=== PATIENT | female | born 1985 | race Hispanic/Latino ===

== ENCOUNTER 2017-01-21 07:53 | Inpatient (IN) | payer OTHER ==
[2017-01-21] VITALS (17 sets, daily range): BP systolic 95–140; BP diastolic 49–65
[~2017-01-21] VITALS: Ht 162.6 cm; Wt 95.5 kg
[2017-01-21] MEDS ORDERED: PRENTAB9 PO (08:52)
[2017-01-21] MEDS ORDERED: LACTATED RINGER'S 1000 ML IV STA (09:22)
[2017-01-21] MEDS ORDERED: LR 1,000 ML IV SCH (09:22)
[2017-01-21 09:57] LABS: MEAN CORPUSCULAR HEMOGLOBIN 28.5 pg (27.0-33.0); MEAN CORPUSCULAR HGB CONC 33.5 g/dl (32.0-36.5); MEAN CORPUSCULAR VOLUME 85.1 fl (80.0-96.0); RED CELL DISTRIBUTION WIDTH 14.6 % (11.5-14.5); WHITE BLOOD COUNT 13.1 K/mm3 (4.0-10.0)
--- NOTE | 2017-01-21 10:43 | HPEPDOC ---
Obstetrical History & Physical General Date of Admission Jan 21, 2017 at 09:21 History of Present Illness 31 yo presented to L&D ambulatory @ 39+1 by LMP([id number]) and 8 wk US done on [id number] with c/o SROM @ 0600 this am along with CTX Q 3-5 min that are increasing in intensity. Denies DFM and VB. GBS negative. Triage exam: + valsalva + pooling + nitrazine + ferning SVE- 4/80/-2 (SVE done by Dr. Villanueva) Chief Complaint: LOF, term (Reports loss of clear fluid @ 0600 this am.) Information Provided By: Patient Age: 31 : 5 Term: 1 Pre-term: 0 Abortions: 3 Livin Care Care: Good Care Number of Visits: 12 Dating Final EDC: Jan 27, 2017 Final EDC for Daily Update: Jan 27, 2017 Final EDC by: LMP LMP: Apr 22, 2016 1st Trimester Date: Jun 17, 2016 Weeks + Days: 8.0 Estimated Date of Confinement: Jan 27, 2017 EGA at Admission: 39.1 Antepartum Course Diagnos(e)s 1. obesity, BMI-30 2. zika negative-traveled to [place] in early 3. heart burn 4. excessive weight gain Height (inches): 64 Pre- weight (lbs.): 170 Admission Weight (lbs.): 41 Change in Weight (lbs.): 41 Past Medical History Past Obstetrical History : Past Obstetrical History: Multigravida Date of Delivery: Nov 27, 2012 Gestation: 40 Type of Delivery: Spontaneous Vaginal Del. Sex of Infant: Male Weight of (grams): 3345 Complications: No CARBONATOR History: Spontaneous (2003 x 2 ; ), Theraputic () Past Medical History Medical History DENIES Surgical History: [place] teeth (2004\) Family History Significant Family History: No pertinent family hx Social History Marital Status: Single Family situation: Spouse/partner home Psychosocial History: No pertinent psych hx * Smoker: non-smoker Alcohol: Denies Drugs: denies Abuse Violence Screening Have you been hit/kicked/slapp: No Have you been sexually assault: No Imunizations Tdap status: current ([id number]) Influenza Status: current ([id number]) Allergies Coded Allergies: No Known Allergies (Unverified , 01/21/17) Medications Scheduled Multivitamins/ ( 27-0.8 mg) 1 Tab Tab 1 TAB PO DAILY Physical Examination Physical Examination GENERAL: A&O x 3 BREAST: Gravid ABDOMEN: Gravid, non-tender to touch. FETUS: VTX by SVE and Brad HEART RATE: RRR, no m/r/g LUNGS:CTA EXTREMITIES: +1 LE edema. No clonus. DTRs + 1 EFW- 3900 grams Vital Signs/I&O Vital Signs Date Time Temp Pulse Resp B/P Pulse Ox O2 Delivery O2 Flow Rate FiO2 01/21/17 08:10 68 125/57 Laboratory Data 24H LABS Laboratory Tests 2 01/21/17 09:42: 01/21/17 09:45: Serology Scanned Report Hepatitis B Testing CBC/BMP Laboratory Tests 01/21/17 09:42 Red Blood Count 3.95 L, Mean Corpuscular Volume 85.1, Mean Corpuscular Hemoglobin 28.5, Mean Corpuscular Hemoglobin Concent 33.5, Red Cell Distribution Width 14.6 H Urine Culture: Other (<10,000 growth) Pertinent Laboratoy Data Blood Type: A+ RBC Antibody Screen: Negative HIV: Negative Hepatitis B: Negative Hepatitis C: Unknown Rapid Plasma Reagin: Nonreactive Rubella: Immune Varicella: Immune Chlamydia/Gonorrhea: Negative Group B Streptococcus: Negative Quad Screen Test: Declined Cystic Fibrosis: Negative Glucose Tolerance Test: 83 Anatomy Ultrasound Ultrasound Date: Sep 08, 2016 Placenta Location: Anterior Normal Anatomy: Yes Placenta Previa: No Estimated Weight (grams): 335 Steroid Therapy Steroid Therapy: No Vaginal Examination Dilation: 4 cm Effacement: 80+% Station: -3 Cervical Consistency: Soft Presentation: Cephalic presentation Position: Vertex (occiput) Assessment Heart Rate (FHR): 120 Variability: Moderate Accelerations: Positive Decelerations: None Tocometer Contractions: Yes Frequency: every 2-5 min. Duration: less than 90 seconds Strength: palpated as moderate Multi-drug resistant Organism: No history of MDRO Assessment/Plan Assessment 31 yo presented to L&D ambulatory @ 39+1 by LMP([id number]) and 8 wk US done on [id number] with SROM @ 0600, clear fluid with CTX Q 3-5 min that are increasing in intensity. Denies DFM and VB. GBS negative. Plan Admit and orient. Concrete Boom Operator and consent. Diet: clear liquid GBS negative IV and labs per unit protocol Counseled on Pitocin IOL LR: Bolus 1000 mL, then at 125 mL/hr. Anticipate C-S as appropriate. MICHAEL LAMA CNM Jan 21, 2017 10:43
[2017-01-21] MEDS ORDERED: FENTANYL 2MCG/ML ROPIVACAINE 0.2% IN 0.9% NACL 200ML IVBAG As Ordered ONE (11:28)
[2017-01-21] MEDS ORDERED: EPIDURAL/PCA KEYS XX PRN (13:00)
[2017-01-21] MEDS ORDERED: EPIDURAL COMMENT XX SCH (13:00)
[2017-01-21] MEDS ORDERED: diphenhydrAMINE INJ 50MG/ML VIAL (J1200) IV PRN (13:00)
[2017-01-21] MEDS ORDERED: ONDANSETRON 4MG/2ML VIAL (J2405) IV PRN ×2 (13:00→17:45)
[2017-01-21] MEDS ORDERED: ePHEDrine SULFATE 25 MG/5 ML(5MG/ML) SYRINGE IV PRN (13:00)
[2017-01-21] MEDS ORDERED: REFRIGERATOR IV KEYS XX PRN (13:00)
[2017-01-21] MEDS ORDERED: FENTANYL/ROPIVACAINE/NACL BAG 200 ML EPIDURAL SCH (13:00)
[2017-01-21] MEDS ORDERED: LACTATED RINGER'S 1000 ML IV PRN (13:00)
[2017-01-21] MEDS ORDERED: NALOXONE INJ 0.4 MG/1 ML VIAL (J2310) IV PRN (13:00)
--- NOTE | 2017-01-21 13:16 | IPNPDOC ---
Obstetrical Progress Note Date of Service The patient was seen on 01/21/17 at 13:06. Progress Note [id number] @ 1300 31 yo @ 39+1 by LMP([id number]) and 8 wk US done on [id number] with c/o SROM @ 0600 this am along with CTX Q 3-5 min S: comfortable with epidural infusing. Spouse is not at bedside at this time, went to lunch O: VS- WNL, afebrile FHR- 120, moderate variability, + accels, late decels CTX- Q 2-4 min, lasting less than 90 sec, palpated as strong, resting tone palpated as soft SVE- 8/90/-1, cervix is gone on the right, thick lip on the left, soft/ant /vtx SROM x 7 hours, fluid remains clear A: yo @ 39+1 by LMP([id number]) and 8 wk US done on [id number] with SROM x 7 hours, no s/s of infection, CAT II FHR tracing, continued cervical change. P: Continue to monitor and assess, sit upright, reassess in 1-2 hours or prn Of note: it sounds like the FHR is skipping a heart beat after every 5th beat. VS, I&O, 24H, Fishbone Vital Signs/I&O Vital Signs Date Time Temp Pulse Resp B/P Pulse Ox O2 Delivery O2 Flow Rate FiO2 01/21/17 08:10 68 125/57 Laboratory Data 24H LABS Laboratory Tests 2 01/21/17 09:42: Syphilis Serology NONREACTIVE 01/21/17 09:45: Serology Scanned Report Hepatitis B Testing CBC/BMP Laboratory Tests 01/21/17 09:42 Red Blood Count 3.95 L, Mean Corpuscular Volume 85.1, Mean Corpuscular Hemoglobin 28.5, Mean Corpuscular Hemoglobin Concent 33.5, Red Cell Distribution Width 14.6 H MICHAEL LAMA CNM Jan 21, 2017 13:16
--- NOTE | 2017-01-21 14:21 | IPNPDOC ---
Obstetrical Progress Note Date of Service The patient was seen on 01/21/17 at 14:17. Progress Note [id number] @ 1420 31 yo @ 39+1 by LMP([id number]) and 8 wk US done on [id number] with c/o SROM @ 0600 this am along with CTX Q 3-5 min S: comfortable with epidural infusing. Spouse is at bedside O: VS- WNL, afebrile FHR- 110, moderate variability, + accels, intermittent late and variable decels CTX- Q 2-7 min, lasting less than 90 sec, palpated as strong, resting tone palpated as soft SVE- no change from previous exam SROM x 8.5 hours, fluid remains clear A: yo @ 39+1 by LMP([id number]) and 8 wk US done on [id number] with SROM x 7 hours, no s/s of infection, CAT II FHR tracing, no cervical change. P: Continue to monitor and assess, initiate pitocin per unit protocol, reassess 2 hour after pitocin is started Dr. Villanueva is aware. VS, I&O, 24H, [place] Vital Signs/I&O Vital Signs Date Time Temp Pulse Resp B/P Pulse Ox O2 Delivery O2 Flow Rate FiO2 01/21/17 08:10 68 125/57 Laboratory Data 24H LABS Laboratory Tests 2 01/21/17 09:42: Syphilis Serology NONREACTIVE 01/21/17 09:45: Serology Scanned Report Hepatitis B Testing CBC/BMP Laboratory Tests 01/21/17 09:42 Red Blood Count 3.95 L, Mean Corpuscular Volume 85.1, Mean Corpuscular Hemoglobin 28.5, Mean Corpuscular Hemoglobin Concent 33.5, Red Cell Distribution Width 14.6 H MICHAEL LAMA CNM Jan 21, 2017 14:21
[2017-01-21] MEDS ORDERED: OXYTOCIN DRIP 30 UNITS in APPROPRIATE DILUENT 1 EA IV SCH ×2 (14:30→17:32)
--- NOTE | 2017-01-21 17:43 | DNPDOC ---
Delivery Note Delivery Note DATE OF DELIVERY: Jan 21, 2017 at 1630 PREDELIVERY DIAGNOSIS: 39+1 weeks' gestation and labor. POST DELIVERY DIAGNOSIS: Delivered. PROCEDURE: BROKERAGE OFFICE MANAGER: Nadine Kwong CNM ANESTHESIA: epidural ESTIMATED BLOOD LOSS: 350 mL. FINDINGS: 8 pound 6 ounce male , Score 9/9, nuchal cord times 1. DELIVERY SUMMARY: Patient is a 31-year-old 5 now para 2 who was admitted to labor and delivery for SROM at 0600 on [id number]. Progressed to 8 cm and then did not progress for 2 hours. Pitocen started and increased to 6 mU /min. Patient reported lots of pressure and found to be c/c/+3. delivery was via of a viable male infant to a clean field; the presented occiput anterior with nuchal cord x 1 noted; anterior shoulder(left) delivered with mild downward traction, then the posterior shoulder delivered with mild upward traction; remainder of corpus delivered spontaneously via somersault maneuver; infant placed on mother's abdomen with a vigorous cry. Initial cleaning completed, delayed cord clamping x 3 minutes, then cord clamped x 2 and cut by FOB; the child continued to have a vigorous cry and was moved to mother's chest for [id number]; pitocin was started with delivery of the anterior shoulder; 3 vessel cord and calcifying placenta were delivered without complications approx 9 minutes later; fundal massage was applied and vaginal vault was swept for clots; vagina and perineum examined; 2MLL & R nikky-clitoral laceration noted. 2MLL repaired using the Eleazar Method. Nikky-clitoral laceration repaired in usual fashion. Excellent hemostasis noted after repair; Fundus firm at U-1. FTF=176 ml, had 9/9; mother and are bonding well and were stable in the delivery room; anticipate routine PP course. Delivering Provider: PARK Francisco KELLI C. CNM Jan 21, 2017 17:43
[2017-01-21] MEDS ORDERED: PROMETHAZINE 25 MG TAB PO PRN (17:45)
[2017-01-21] MEDS ORDERED: DOCUSATE SODIUM 100 MG CAP PO PRN (17:45)
[2017-01-21] MEDS ORDERED: ACETAMINOPHEN 500 MG TAB PO PRN (17:45)
[2017-01-21] MEDS ORDERED: DIBUCAINE 1% OINTMENT 30GM TOP PRN (17:45)
[2017-01-22] MEDS: IBUPROFEN 800 MG TAB PO PRN ×3 (05:27→22:16)
[2017-01-22 05:36] VITALS: BP 107/54
--- NOTE | 2017-01-22 06:04 | IPNPDOC ---
Text Note Date of Service The patient was seen on 01/22/17. NOTE Fidleina is a 31yo doing well on PPD 1 s/p uncomplicated . She is . Lochia decreasing, spontaneously voiding and ambulating without difficulty. Tolerating regular diet. Denies f/c/n/v/SOB/CP/KOENIG/abdominal pain. Vitals wnl, afebrile Exam: General: WDWN, NAD, resting comfortably Cardiac: S1S2 present, no murmur Lungs: CTAB without wheeze/crackles Abdomen: soft, NTTP, fundus firm u-2cm Extremities: no tenderness of calves bilaterally Assessment: Fidelina is a 31yo doing well on PPD 1 s/p uncomplicated . Vitals wnl, benign exam. No e/o infection, hemodynamically stable. Plan: -routine care -motrin/tylenol prn pain -encourage and ambulation -likely discharge to home tomorrow Dr. Scarlett Villanueva MD [facility] VS,[place], I+O VS, [place] I+O Laboratory Tests 01/21/17 09:42 Red Blood Count 3.95 L, Mean Corpuscular Volume 85.1, Mean Corpuscular Hemoglobin 28.5, Mean Corpuscular Hemoglobin Concent 33.5, Red Cell Distribution Width 14.6 H Vital Signs Date Time Temp Pulse Resp B/P Pulse Ox O2 Delivery O2 Flow Rate FiO2 01/22/17 05:36 98.2 77 18 107/54 I&O- Last 24 Hours up to 6 AM 01/22/17 06:00 Intake Total 500 ml Output Total 1200 ml Balance -700 ml SCARLETT VILLANUEVA MD Jan 22, 2017 06:04
[2017-01-22 08:15] VITALS: BP 100/58
[2017-01-22] MEDS: PRENATAL VITAMIN TAB PO SCH (09:11)
[2017-01-22 18:00] VITALS: BP 98/56
[2017-01-23 06:17] VITALS: BP 118/72
[2017-01-23] MEDS: PRENATAL VITAMIN TAB PO SCH (08:27)
[2017-01-23] MEDS: IBUPROFEN 800 MG TAB PO PRN (08:28)
[2017-01-23] MEDS ORDERED: TYLE500T78 PO (10:50)
[2017-01-23] MEDS ORDERED: MOTR200T44 PO (10:50)
[2017-01-23] MEDS ORDERED: COLA100C3 PO (10:50)
== END 2017-01-23 11:30 | disposition home or self-care (01) | DRG 775 ==
LOC: M LDO 07:53 → M LDI 09:21 → M OBS 18:49
PROVIDERS: ADMIT Midwife; ATTEND Midwife
PROC: 10E0XZZ Delivery of Products of Conception, External Approach (ICD-10-PCS; principal; 2017-01-21)
PROC: 0KQM0ZZ Repair Perineum Muscle, Open Approach (ICD-10-PCS; 2017-01-21)
PROC: 0HQ9XZZ Repair Perineum Skin, External Approach (ICD-10-PCS; 2017-01-21)
DX: O99.214 Obesity complicating childbirth (principal); Z3A.39 39 weeks gestation of pregnancy; E66.9 Obesity, unspecified; Z68.30 Body mass index [BMI] 30.0-30.9, adult; O70.1 Second degree perineal laceration during delivery; O89.4 Spinal and epidural anesthesia-induced headache during the puerperium; O69.81X0 Labor and delivery complicated by cord around neck, without compression, not applicable or unspecified; O70.0 First degree perineal laceration during delivery; Z37.0 Single live birth